=== PATIENT | female | born 1995 ===

== ENCOUNTER 2017-09-13 01:17 | Emergency (ER) | payer SELFPAY ==
[2017-09-13] MEDS ORDERED: Sodium Chloride 0.9% 1,000 ML IV STA (02:10)
[2017-09-13 02:28] VITALS: RESP 16
[2017-09-13 02:54] LABS: BASO # 0.1 K/uL (0.0-0.2); BASO % 0.4 % (0.0-2.0); EOS # 0.3 K/uL (0.0-0.7); EOS % 2.3 % (0.0-4.0); HEMOGLOBIN 11.2 g/dL (12.0-16.0); LYMPH # 2.6 K/uL (1.0-4.3); LYMPH % 19.2 % (20.0-40.0); MEAN CELL VOLUME 83.7 fl (81.0-99.0); MEAN CORPUSCULAR HEMOGLOBIN 27.4 pg (27.0-31.0); MEAN CORPUSCULAR HGB CONC 32.8 g/dL (33.0-37.0); MEAN PLATELET VOLUME 6.9 fl (7.2-11.7); MONO # 0.7 K/uL (0.0-0.8); MONO % 5.2 % (0.0-10.0); NEUT # 9.7 K/uL (1.8-7.0); NEUT % 72.9 % (50.0-75.0); RBC 4.08 Mil/uL (3.80-5.20); RED CELL DISTRIBUTION WIDTH 13.8 % (11.5-14.5); WHITE BLOOD COUNT 13.3 K/uL (4.8-10.8)
[2017-09-13 03:05] LABS: ACETAMINOPHEN < 10.0 ug/ml (10.0-30.0); BLOOD UREA NITROGEN 15 mg/dl (7-17); CALCIUM 8.5 mg/dL (8.4-10.2); GFR AFRICAN-AMERICAN > 60; GFR NON-AFRICAN AMERICAN > 60; SALICYLATE < 1.0 mg/dl
--- NOTE | 2017-09-13 03:26 | ED PDOC ---
HPI: Psych/Substance Abuse Time Seen by Provider: 09/13/17 01:28 Chief Complaint (Nursing): Substance Abuse Chief Complaint (Provider): Substance Abuse History Per: Patient, Other (friend) History/Exam Limitations: no limitations Onset/Duration Of Symptoms: Mins (prior to arrival) Current Symptoms Are (Timing): Better Additional Complaint(s): 21 year old female presents to the emergency department via EMS with a friend who states that the patient consumed a gummy bear with THC which made her anxious and vomit, prompting the ED visit. The friend does not think the patient was also drinking, but is unsure. At the moment, the patient has no complaints. PMD: none provided Past Medical History Reviewed: Historical Data, Nursing Documentation, Vital Signs Vital Signs: Last Vital Signs Temp 98 F 09/13/17 01:19 Pulse 106 H 09/13/17 02:25 Resp 16 09/13/17 02:25 BP 109/65 09/13/17 02:25 Pulse Ox 99 09/13/17 02:25 - Medical History PMH: No Chronic Diseases - Surgical History Surgical History: No Surg Hx - Family History Family History: States: Unknown Family Hx - Social History Current smoker - smoking cessation education provided: No Alcohol: Social Drugs: Cannabis - Allergies Allergies/Adverse Reactions: Allergies Allergy/AdvReac Type Severity Reaction Status Date / Time No Known Allergies Allergy Verified 09/13/17 01:24 Review of Systems ROS Statement: Except As Marked, All Systems Reviewed And Found Negative Gastrointestinal: Positive for: Vomiting Psych: Positive for: Anxiety (after consuming the THC gummy bear) Physical Exam - Reviewed Nursing Documentation Reviewed: Yes Vital Signs Reviewed: Yes - Physical Exam Appears: Positive for: No Acute Distress Head Exam: Positive for: ATRAUMATIC, NORMOCEPHALIC Skin: Positive for: Normal Color, Warm, Dry Eye Exam: Positive for: Normal appearance, EOMI, PERRL (slightly dialted pupils bilaterally, but otherwise PERRL) ENT: Positive for: Normal ENT Inspection Neck: Positive for: Normal, Painless ROM, Supple Cardiovascular/Chest: Positive for: Tachycardia Respiratory: Positive for: Normal Breath Sounds. Negative for: Accessory Muscle Use, Wheezing, Respiratory Distress Gastrointestinal/Abdominal: Positive for: Normal Exam, Soft. Negative for: Tenderness Back: Positive for: Normal Inspection. Negative for: L CVA Tenderness, R CVA Tenderness Extremity: Positive for: Normal ROM Neurologic/Psych: Positive for: Alert, Oriented (x3) - Laboratory Results Result Diagrams: 09/13/17 02:25 09/13/17 02:25 - ECG O2 Sat by Pulse Oximetry: 99 (RA) Pulse Ox Interpretation: Normal - Progress Re-evaluation Time: 05:43 Condition: Re-examined, Improved Medical Decision Making Medical Decision Making: Initial Impression: substance (cannabis) abuse, poss amphetamine / k2 / benzyls Time: 2:06 Initial Plan: --EKG --Acetaminophen --Alcohol serum --BMP --Drug screen --Salicylate --ED urine --ED urine dipstick --CBC with differential --Sodium chloride 0.9% 1000ml IV --Zofran 4mg PO Scribe Attestation: Documented by Samanta No, acting as a scribe for Devang Chahal MD Provider Scribe Attestation: All medical entries made by the Scribe were at my direction and personally dictated by me. I have reviewed the chart and agree that the record accurately reflects my personal performance of the history, physical exam, medical decision making, and the department course for this patient. I have also personally directed, reviewed, and agree with the discharge instructions and disposition. Disposition - Clinical Impression Clinical Impression: Substance abuse - Patient ED Disposition Is Patient to be Admitted: No Doctor Will See Patient In The: Office Counseled Patient/Family Regarding: Studies Performed, Diagnosis, Need For Followup - Disposition Referrals: formerly [facility] [Outside] Disposition: Routine/Home Disposition Time: 05:44 Condition: GOOD Instructions: Marijuana Use and Addiction - POA Present On Arrival: None
[2017-09-13 05:59] VITALS: BP 106/78; PULSE 88; TEMP 98.2; O2SAT 98
--- NOTE | 2017-09-13 14:41 | CARD ---
APPROVED REPORT EKG Measurement Heart [id number] <Conclusion> Sinus tachycardia Left atrial enlargement Nonspecific ST abnormality Abnormal ECG
== END 2017-09-13 05:58 | disposition home or self-care (01) ==
LOC: H.ER 01:17
DX: F12.10 Cannabis abuse, uncomplicated (principal); I51.7 Cardiomegaly
CPT/HCPCS: 80048; 85025; 93005; 96360; 99282; G0480; J7030